=== PATIENT | female | born 1990 | race Caucasian/White ===

== ENCOUNTER → 2024-04-15 16:15 | Outpatient (REF) | payer BC, SELFPAY | LOC: PNTC 16:15 | PROVIDERS: ATTENDING PHYSICIAN Obstetrics & Gynecology | DX: O14.90 Unspecified pre-eclampsia, unspecified trimester (principal) | CPT/HCPCS: 76811 ==

== ENCOUNTER → 2024-04-23 09:41 | Outpatient (REF) | payer BC, SELFPAY | LOC: PNTC 09:41 | PROVIDERS: ATTENDING PHYSICIAN Obstetrics & Gynecology | DX: O09.299 Supervision of pregnancy with other poor reproductive or obstetric history, unspecified trimester (principal) | CPT/HCPCS: 76815; 76817 ==

== ENCOUNTER → 2024-06-09 15:42 | Outpatient (REF) | payer BC, SELFPAY | LOC: REG 15:42 | PROVIDERS: ATTENDING PHYSICIAN Obstetrics & Gynecology | DX: Z34.83 Encounter for supervision of other normal pregnancy, third trimester (principal) | CPT/HCPCS: 36415; 86850; 86900; 86901; J2790 ==

== ENCOUNTER → 2024-09-07 11:28 | Outpatient (REF) | payer BC, SELFPAY | LOC: PNTC 11:28 | PROVIDERS: ATTENDING PHYSICIAN Obstetrics & Gynecology | DX: O48.0 Post-term pregnancy (principal) | CPT/HCPCS: 59025; 76815 ==

== ENCOUNTER 2024-09-08 08:35 | Inpatient (IN) | payer BC, SELFPAY ==
[2024-09-08 08:49] VITALS: BP 155/84; BMI 33.5
[2024-09-08 09:27] LABS: % Basophils 0.3 % (0-2); % Eosinophils 1.2 % (0-6); % Immature Granulocytes 1.2 % (0-0.5); % Lymphocytes 18.1 % (20.5-51.1); % Neutrophils 71.2 % (42.2-75.2); Absolute Eosinophils 0.1 10^3/uL (0-0.7); Absolute Immature Granulocytes 0.1 10^3/uL (0-0.05); Absolute Lymphocytes 1.9 10^3/uL (1.2-3.4); Absolute Monocytes 0.8 10^3/uL (0.1-0.6); Absolute Neutrophils 7.4 10^3/uL (1.4-6.5); Hematocrit 34.7 % (37.0-47.0); Hemoglobin 12.1 g/dL (12.0-16.0); Mean Corp Hgb Conc. 34.9 g/dL (33.0-37.0); Mean Corpuscular Hgb 29.8 pg (27.0-31.0); Mean Corpuscular Volume 85.5 fL (81.0-99.0); Mean Platelet Volume 11.7 fL (7.4-10.4); Nucleated Red Blood Cells % 0 %; Platelet Count 195 10^3/uL (130-400); Red Blood Cell Count 4.06 10^6/uL (4.20-5.40); Red Cell Dist. Width 12.8 % (11.5-14.5); White Blood Cell Count 10.4 10^3/uL (4.8-10.8)
[2024-09-08] MEDS: PITOCIN 30 UNITS/NSS 500 ML IV (10:18)
[2024-09-08 10:44] LABS: ALT (SGPT) 16 U/L (0-35); AST (SGOT) 20 U/L (14-36); Albumin 3.9 g/dl (3.5-5.0); Alkaline Phosphatase 101 U/L (38-126); Blood Urea Nitrogen 10 mg/dl (7-17); Calcium 9.8 mg/dl (8.4-10.2); Carbon Dioxide 21 mmol/L (22-30); Chloride 108 mmol/L (98-107); Estimated Creatinine Clearance > 125 ml/min; Glucose 78 mg/dl (70-99); Potassium 4.1 mmol/L (3.5-5.1); Sodium 135 mmol/L (135-145); Total Bilirubin 0.4 mg/dl (0.2-1.3); Total Protein 6.6 g/dl (6.3-8.2); eGFR > 60.00
[2024-09-08 10:53] LABS: Protein/creatinine Ratio 0.4; Urine Protein 15 mg/dl
[2024-09-08] MEDS: SUBLIMAZE 100 MCG EPIDURAL (12:21)
[2024-09-08] MEDS: FENTANYL/BUPIVACAINE 100 EPIDURAL (12:22)
[2024-09-08] MEDS: TUMS CHEWABLE TABLET 400 MG PO (14:59)
[2024-09-09 04:43] LABS: Hematocrit 33.4 % (37.0-47.0); Hemoglobin 11.4 g/dL (12.0-16.0)
[2024-09-09] MEDS: PRENATAL PLUS 1 TABLET PO (08:59)
[2024-09-09] MEDS: SENOKOT-S 1 TABLET PO (08:59)
[2024-09-09] MEDS: MOTRIN 600 MG PO (09:18)
[2024-09-09] MEDS: RHOGAM 300 MCG IM (12:54)
== END 2024-09-09 18:43 | disposition home or self-care (01) | DRG 807 ==
LOC: LDRP 08:35
PROVIDERS: Obstetrics & Gynecology; Student in an Organized Health Care Education/Training Program; ADMITTING PHYSICIAN Obstetrics & Gynecology
PROC: 10907ZC Drainage of Amniotic Fluid, Therapeutic from Products of Conception, Via Natural or Artificial Opening (ICD-10-PCS; 2024-09-08)
PROC: 3E033VJ Introduction of Other Hormone into Peripheral Vein, Percutaneous Approach (ICD-10-PCS; 2024-09-08)
PROC: 3E0234Z Introduction of Serum, Toxoid and Vaccine into Muscle, Percutaneous Approach (ICD-10-PCS; 2024-09-09)
PROC: 10E0XZZ Delivery of Products of Conception, External Approach (ICD-10-PCS; 2024-09-09)
PROC: 0KQM0ZZ Repair Perineum Muscle, Open Approach (ICD-10-PCS; 2024-09-09)
DX: O48.0 Post-term pregnancy (principal); Z37.0 Single live birth; Z3A.41 41 weeks gestation of pregnancy; O69.81X0 Labor and delivery complicated by cord around neck, without compression, not applicable or unspecified; O70.1 Second degree perineal laceration during delivery
CPT/HCPCS: 80053; 82570; 84156; 85014; 85018; 85025; 85461; 86780; 86850; 86900; 86901; J2790